=== PATIENT | male | born 1980 | race Caucasian/White ===

== ENCOUNTER 2021-12-09 19:28 | Emergency (ER) | payer OTHER ==
[2021-12-09] MEDS ORDERED: Diphtheria,Pertussis(Acell),Tetanus Vaccine 0.5 ML Syringe IM ONE (20:08)
[2021-12-09] MEDS ORDERED: Bacitracin Oint 1 GM U/D Packet TOP ONE (20:09)
== END 2021-12-09 21:11 | disposition home or self-care (01) ==
LOC: JP.ED 19:28
DX: S61.552A Open bite of left wrist, initial encounter (principal); Z23 Encounter for immunization; W54.0XXA Bitten by dog, initial encounter
CPT/HCPCS: 90471; 90715; 99283-25